=== PATIENT | male | born 1980 | race Caucasian/White ===

== ENCOUNTER 2017-10-09 16:26 | Emergency (ER) | payer OTHER ==
[~2017-10-09] VITALS: Ht 167.6 cm; Wt 94.8 kg
[~2017-10-09 16:26] MED LIST: ESCITALOPRAM OX10 MG PO; FLUOXETINE HCL20 MG PO; LEXAPRO20 MG PO; PROZAC20 MG PO; PYRIDIUM100 MG PO; REMERON15 M2 PO; TAMSULOSIN HCL0.4 MG PO
[2017-10-09 17:11] LABS: HEMATOCRIT 45.7 % (38.0-50.0); MCH 28.5 PG (29.0-34.0); MCV 86.2 FL (86-99); MEAN PLAT.VOLUME 9.5 uM^3 (9.0-12.4); PLATELET COUNT 202 K/uL (156-360); RBC DIS.WIDTH-CV 13.3 % (11.8-14.6); RBC DIS.WIDTH-SD 41.5 % (39-53); WHITE BLOOD COUNT 6.4 K/uL (4.1-10.2)
[2017-10-09 17:22] LABS: CHLORIDE 103 mEq/L (99-109); POTASSIUM 3.6 mEq/L (3.7-5.4); SODIUM 137 mEq/L (136-147)
[2017-10-09 17:24] LABS: GLUCOSE 98 mg/dL (70-99)
[2017-10-09 17:25] LABS: ANION GAP 9 MEQ/L (2-14)
[2017-10-09 17:28] LABS: GFR ESTIMATE (CALCULATED) > 59 mL/min/
[2017-10-09 17:29] LABS: UREA NITROGEN (BUN) 11 mg/dL (9-23)
[2017-10-09 19:15] LABS: TOTAL BILIRUBIN 0.4 mg/dL (0.0-1.0)
[2017-10-09 19:16] LABS: ALKALINE PHOSPHATASE 59 IU/L (3-129)
[2017-10-09] MEDS ORDERED: ZOFRAN4 MG PO (19:16)
[2017-10-09 19:19] LABS: DIRECT BILIRUBIN 0.2 mg/dL (0.0-0.3)
[2017-10-09 19:20] LABS: LIPASE 13 U/L (1.0-51.0)
[2017-10-09 19:32] VITALS: BP 125/90
== END 2017-10-09 19:33 | disposition home or self-care (01) ==
LOC: EME 16:26
DX: R11.2 Nausea with vomiting, unspecified (principal); R19.7 Diarrhea, unspecified; F32.9 Major depressive disorder, single episode, unspecified; F17.210 Nicotine dependence, cigarettes, uncomplicated; R56.9 Unspecified convulsions
CPT/HCPCS: 80048; 80076; 81003; 83690; 85027; 99281; 99284

== ENCOUNTER 2018-06-01 09:35 | Emergency (ER) | payer OTHER ==
[~2018-06-01] VITALS: Ht 167.6 cm; Wt 94.0 kg
[~2018-06-01 09:35] MED LIST changes: +ZOFRAN4 MG PO
[2018-06-01] MEDS ORDERED: MOTRIN600 MG PO (11:08)
[2018-06-01 11:45] VITALS: BP 124/82
== END 2018-06-01 11:46 | disposition home or self-care (01) ==
LOC: EME 09:35
DX: S93.401A Sprain of unspecified ligament of right ankle, initial encounter (principal); X50.0XXA Overexertion from strenuous movement or load, initial encounter; Y93.01 Activity, walking, marching and hiking; F17.200 Nicotine dependence, unspecified, uncomplicated; Z91.030 Bee allergy status
CPT/HCPCS: 73610